=== PATIENT | female | born 2000 | race Caucasian/White ===

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

== ENCOUNTER 2020-09-12 16:28 | Emergency (ER) | payer OTHER ==
[~2020-09-12 16:28] MED LIST: AEROCHAMBER1 EA XX; FLEXERIL 10 MG10 MG PO; LEVAQUIN750 MG PO; LORTAB 5-325 M1 EACH PO; PREDNISONE 50 M50 MG PO; PREDNISONE20 MG PO; VENTOLIN HFA 66.7 GM INH; Voltaren Gel 1 % TOP; ZOFRAN4 MG PO
[2020-09-12] MEDS ORDERED: AUGMENTIN 875-1 EACH PO (16:55)
[2020-09-12] MEDS ORDERED: NAPROSYN500 MG PO (16:55)
== END 2020-09-12 17:44 | disposition home or self-care (01) ==
LOC: ER1 16:28
DX: K04.7 Periapical abscess without sinus (principal); F17.210 Nicotine dependence, cigarettes, uncomplicated
CPT/HCPCS: 96372; 99282; J1885